=== PATIENT | male | born 1970 | race Caucasian/White ===

== ENCOUNTER 2018-06-16 17:56 | Emergency (ER) | payer OTHER ==
[2018-06-16] MEDS ORDERED: ADENOSINE 6 MG/ 2ML VIAL IV ONE (18:10)
[2018-06-16] MEDS ORDERED: NA CHLORIDE 0.9% 1,000 ML ONE (18:10)
[2018-06-16] MEDS ORDERED: METOPROLOL TARTRATE 5 MG/5 ML INJ IV ONE (18:22)
[2018-06-16 18:30] LABS: Protime INR 0.97
[2018-06-16 18:33] LABS: Absolute Lymphocytes (CBC) 3.3 K/uL (0.7-4.9); Absolute Monocytes 1.1 K/uL (0.1-1.3); Absolute Neutrophil 7.2 K/uL (1.8-8.0); Basophils % 1.1 % (0-1.3); Eosinophils % 1.4 % (0-4.4); Hematocrit 45.7 % (39.6-49.0); MCH 28.7 pg (27.0-35.0); MCV 83.9 fL (80-100); MPV 8.2 fL (7.6-11.3); Monocytes % 9.3 % (3.3-12.3); RBC Red Blood Cell Count 5.45 M/uL (4.33-5.43)
[2018-06-16] MEDS ORDERED: ETOMIDATE 20 MG/10 ML VIAL IV ONE (18:34)
[2018-06-16] MEDS ORDERED: FENTANYL CITR 100 MCG/2 ML ONE (18:40)
--- NOTE | 2018-06-16 18:50 | RAD REPORT ---
EXAM DESCRIPTION: RAD - Chest Single View - 06/16/2018 6:45 pm CLINICAL HISTORY: CHEST PAIN Chest pain. COMPARISON: No comparisons FINDINGS: Portable technique limits examination quality. The lungs are grossly clear. The heart is upper limit of normal in size. No displaced fractures. IMPRESSION: No acute intrathoracic process suspected.
--- NOTE | 2018-06-16 19:08 | EKG ---
Test Date: 2018-06-16 Test Time: 18:04:42 Bpm Analyst: DEZ MEASUREMENT RESULTS: Intervals: Rate: 187 NM: QRSD: 86 QT: 266 QTc: 469 [place]: P: NM: QRS: 40 T: 5 INTERPRETIVE STATEMENTS: Supraventricular tachycardia Otherwise normal ECG No previous ECG available for comparison Electronically Signed On 06-16-18 19:07:34 CDT by Isael Clarke
[2018-06-16 19:14] LABS: ALT/SGPT 47 U/L (12-78); AST/SGOT 24 U/L (15-37); Albumin 3.9 g/dL (3.4-5.0); Alkaline Phosphatase 59 U/L (45-117); BUN Blood Urea Nitrogen 20 mg/dL (7-18); Bicarbonate 28 mmol/L (21-32); Bilirubin Direct < 0.1 mg/dL (0-0.2); Bilirubin Total 0.3 mg/dL (0.2-1.0); CKMB Creatine Kinase MB 1.6 ng/mL (0.3-3.6); Creatine Phosphokinase 88 U/L (39-308); Glucose Level 171 mg/dL (74-106); Magnesium 1.9 mg/dL (1.8-2.4); NT PRO-BNP 142 pg/mL (<125); Potassium 3.8 mmol/L (3.5-5.1); Protein, Total 7.6 g/dL (6.4-8.2); Sodium Level 135 mmol/L (136-145)
[2018-06-16] MEDS ORDERED: NEBIVOLOL HCL 5 MG TAB ONE (19:44)
--- NOTE | 2018-06-16 20:38 | EDPHYS ---
Physician Documentation [facility] Name: Ben Madsen Age: 48 yrs Sex: Male : 1970 Arrival Date: 06/16/2018 Time: 18:00 Bed 3 Private MD: Jesus Patten B ED Physician Brennon Otero HPI: 06/16 19:57 This 48 yrs old Male presents to ER via Ambulatory with complaints of Racing jr8 Heart. 19:57 Onset: The symptoms/episode began/occurred acutely, today. Associated signs and jr8 symptoms: Pertinent positives: shortness of breath, dizziness. Modifying factors: The patient symptoms are alleviated by nothing, the patient symptoms are aggravated by activity. The patient has experienced similar episodes in the past, a few times. The patient has been recently seen by a physician:. Patient stated that he has had a racing heart rate about 1 month ago. Stated that he was worked up by cardiology including having echo and stress test. All came back normal. Stated that he was taken off bystolic and put on losartan/hctz. Stated that today has had multiple episodes of palpitations and racing feeling. Has never felt this bad in the past . Historical: - Allergies: 18:06 No Known Allergies; hj - Home Meds: 18:06 simvastatin 10 mg Oral tab 1 tab once daily [Active]; metformin 500 mg Oral Tb24 1 tab hj once daily [Active]; losartan-hydrochlorothiazide 100-25 mg oral tab 1 tab once daily [Active]; - PMHx: 18:06 Hyperlipidemia; Hypertension; Diabetes - NIDDM; hj - PSHx: 18:06 Appendectomy; hj - Immunization history:: Adult Immunizations up to date. - Social history:: Smoking status: Patient/guardian denies using tobacco, Patient/guardian denies using alcohol. - Ebola Screening: : Patient negative for fever greater than or equal to 101.5 degrees Fahrenheit, and additional compatible Ebola Virus Disease symptoms Patient denies exposure to infectious person Patient denies travel to an Ebola-affected area in the 21 days before illness onset. ROS: 19:57 Eyes: Negative for injury, pain, redness, and discharge, ENT: Negative for injury, jr8 pain, and discharge, Neck: Negative for injury, pain, and swelling, Respiratory: Negative for shortness of breath, cough, wheezing, and pleuritic chest pain, Abdomen/GI: Negative for abdominal pain, nausea, vomiting, diarrhea, and constipation, Back: Negative for injury and pain, MS/Extremity: Negative for injury and deformity, Skin: Negative for injury, rash, and discoloration. 19:57 Neuro: Negative for headache, weakness, numbness, tingling, and seizure. 19:57 Cardiovascular: Positive for palpitations. Exam: 19:57 Eyes: Pupils equal round and reactive to light, extra-ocular motions intact. Lids and jr8 lashes normal. Conjunctiva and sclera are non-icteric and not injected. Cornea within normal limits. Periorbital areas with no swelling, redness, or edema. ENT: Nares patent. No nasal discharge, no septal abnormalities noted. Tympanic membranes are normal and external auditory canals are clear. Oropharynx with no redness, swelling, or masses, exudates, or evidence of obstruction, uvula midline. Mucous membranes moist. Neck: Trachea midline, no thyromegaly or masses palpated, and no cervical lymphadenopathy. Supple, full range of motion without nuchal rigidity, or vertebral point tenderness. No Meningismus. Respiratory: Lungs have equal breath sounds bilaterally, clear to auscultation and percussion. No rales, rhonchi or wheezes noted. No increased work of breathing, no retractions or nasal flaring. Abdomen/GI: Soft, non-tender, with normal bowel sounds. No distension or tympany. No guarding or rebound. No evidence of tenderness throughout. Back: No spinal tenderness. No costovertebral tenderness. Full range of motion. Skin: Warm, dry with normal turgor. Normal color with no rashes, no lesions, and no evidence of cellulitis. MS/ Extremity: Pulses equal, no cyanosis. Neurovascular intact. Full, normal range of motion. Neuro: Awake and alert, GCS 15, oriented to person, place, time, and situation. Cranial nerves II-XII grossly intact. Motor strength 5/5 in all extremities. Sensory grossly intact. Cerebellar exam normal. Normal gait. 19:57 Cardiovascular: Rate: tachycardic, actual rate is 190 bpm, Rhythm: irregular, Pulses: Pulses are 1+ in right radial artery and left radial artery. Heart sounds: normal, normal S1and S2, no S3 or S4, no murmur, no rub, no gallop, Edema: is not appreciated, JVD: is not appreciated. Vital Signs: 18:03 BP 154 / 102; Pulse 192; Resp 18; Temp 97.3; Pulse Ox 100% on R/A; Weight 102.51 kg; hj Height 5 ft. 7 in. (170.18 cm); Pain 0/10; 18:19 BP 137 / 93; Pulse 190 MON; sv 18:21 Pulse 115; Resp 17; Pulse Ox 99% on 2.5 lpm NC; sv 18:25 Pulse 170; Pulse Ox 100% on 2.5 lpm NC; sv 18:28 BP 103 / 65; Pulse 164; Resp 17; Pulse Ox 100% on 2.5 lpm NC; sv 18:35 BP 111 / 74; Pulse 157; Resp 16 S; Pulse Ox 99% on 2 lpm NC; iw 18:41 BP 112 / 91; Pulse 105; Resp 16 S; Pulse Ox 99% on 2 lpm NC; iw 18:46 BP 134 / 91; Pulse 101; Resp 23 S; Pulse Ox 98% on 2 lpm NC; iw 19:00 BP 129 / 88; Pulse 107; Resp 22; Pulse Ox 100% on 2.5 lpm NC; sv 19:29 BP 115 / 81; Pulse 106; Resp 20; Pulse Ox 96% on R/A; Pain 0/10; ak1 19:56 BP 134 / 87; Pulse 103; Resp 16; Pulse Ox 96% on R/A; Pain 0/10; ak1 20:29 BP 128 / 86; Pulse 102; Resp 18; Temp 97.3; Pulse Ox 96% on R/A; Pain 0/10; ak1 18:03 Body Mass Index 35.40 (102.51 kg, 170.18 cm) hj 18:19 SVT sv 18:21 Sinus tachycardia sv 18:25 Sinus tachycardia sv 18:28 Sinus tachycardia sv Procedures: 20:39 Cardioversion: (synchronized) for treatment of SVT, with 150 joules X 1. Post procedure jr8 rhythm is sinus rhythm, the patient tolerated the procedure well. Moderate sedation: Pre-procedure assessment: the patient has been NPO 4 hour(s) prior to arrival, ASA physical classification: III - organic disease with definite functional impairment, Airway assessment: able to hyperextend neck, able to maintain airway, can open mouth without difficulty, Mallampati classification of tongue size: II - faucial pillars and soft palate can be visualized, but uvula is masked by the base of the tongue, Monitoring during procedure: finishing range supervisor, continuous pulse oximetry, nurse at bedside at all times, Medications employed: Etomidate, 5 mg(s), Post-procedure assessment: the patient is mildly sedated, Ramirez sedation score: 4 - brisk response to a light glabellar tap, Respiratory status: even and unlabored, a reversal agent was not used. MDM: 18:18 Patient medically screened. jr8 20:35 Data reviewed: vital signs, nurses notes, lab test result(s), EKG, radiologic studies, jr8 plain films. Data interpreted: Pulse oximetry: on room air is 96 %. Interpretation: normal. Counseling: I had a detailed discussion with the patient and/or guardian regarding: the historical points, exam findings, and any diagnostic results supporting the discharge/admit diagnosis, lab results, the need for outpatient follow up, a restaurant delivery driver, to return to the emergency department if symptoms worsen or persist or if there are any questions or concerns that arise at home. Response to treatment: the patient's symptoms have resolved after treatment. ED course: Discussed with patient that because of his bodies resistence to treatment initially. It would be a good idea to at least be observed over night to insure he remains stable and that the Bystolic that I put him back on works. Patient wants to go home. Told patient that he needs to f/u with cardiology by end of week if possible. If it happens again to immediately come back. To restart Bystolic but instead of 10 QD to do 5 QD to see how he does. Patient is grateful and good with this. Would follow up or come back . 06/16 18:12 Order name: Basic Metabolic Panel; Complete Time: 19:24 06/16 18:12 Order name: CBC with Diff; Complete Time: 18:45 06/16 18:12 Order name: Ckmb; Complete Time: 19:24 06/16 18:12 Order name: CPK; Complete Time: 19:24 06/16 18:12 Order name: LFT's; Complete Time: 19:24 06/16 18:12 Order name: Magnesium; Complete Time: 19:24 06/16 18:12 Order name: NT PRO-BNP; Complete Time: 19:24 [facility] 06/16 18:12 Order name: PT-INR; Complete Time: 18:45 [facility] 06/16 18:12 Order name: Ptt, Activated; Complete Time: 18:45 [facility] 06/16 18:12 Order name: Troponin (emerg Dept Use Only); Complete Time: 18:45 [facility] 06/16 18:12 Order name: XRAY Chest (1 view); Complete Time: 18:54 [facility] 06/16 18:08 Order name: EKG; Complete Time: 18:08 06/16 18:12 Order name: Cardiac monitoring; Complete Time: 18:13 [facility] 06/16 18:12 Order name: EKG - Nurse/Tech; Complete Time: 18:13 [facility] 06/16 18:12 Order name: IV Saline Lock; Complete Time: 18:49 [facility] 06/16 18:12 Order name: Labs collected and sent; Complete Time: 18:49 [facility] 06/16 18:12 Order name: O2 Per Protocol; Complete Time: 18:13 [facility] 06/16 18:12 Order name: O2 Sat Monitoring; Complete Time: 18:13 [facility] Administered Medications: 18:15 Drug: Adenosine 6 mg Route: IVP; Site: right antecubital; sv 18:53 Follow up: Response: No adverse reaction sv 18:19 Drug: Adenosine 12 mg Route: IVP; Site: right antecubital; sv 18:54 Follow up: Response: No adverse reaction sv 18:25 Drug: Lopressor 5 mg Route: IVP; Site: right antecubital; sv 18:54 Follow up: Response: No adverse reaction sv 18:37 Drug: fentaNYL (PF) 25 mcg Route: IVP; Site: right antecubital; iw 18:53 Follow up: Response: No adverse reaction sv 18:38 Drug: Etomidate 2.5 mg Route: IVP; Site: right antecubital; sv 18:53 Follow up: Response: No adverse reaction sv 18:38 Drug: Etomidate 2.5 mg Route: IVP; Site: right antecubital; sv 18:53 Follow up: Response: No adverse reaction sv 19:56 Drug: Bystolic 5 mg Route: PO; ak1 20:10 Follow up: Response: No adverse reaction ak1 Disposition: 06/17 07:10 Co-signature as Attending Physician, Brennon Otero MD. rn Disposition: 06/16/18 20:37 Discharged to Home. Impression: Supraventricular tachycardia. - Condition is Stable. - Discharge Instructions: Electrical Cardioversion, Pharmaceutical Cardioversion, Paroxysmal Supraventricular Tachycardia. - Medication Reconciliation Form, Thank You Letter, Antibiotic Education, Prescription Opioid Use form. - Follow up: Enrrique Yusuf MD; When: 1 - 2 days; Reason: Recheck today's complaints, Continuance of care, Re-evaluation by your physician. - Problem is new. - Symptoms are resolved. - Notes: To start Bystolic 5 mg once a day Critical care time excluding procedures: 06/16 20:39 Critical care time: Bedside Care: 20 minutes, Consultation: 10 minutes, Family jr8 Intervention: 10 minutes. Total time: 40 minutes Signatures: Dispatcher [employer] Charisse Hancock RN RN sv Williams, Irene, RN RN iw Nieto, Roman, MD MD rn Roszak, Josh, PA PA jr8 Sindy Luciano RN RN ak1 Henry Garcia RN RN Corrections: (The following items were deleted from the chart) 20:38 18:12 Urine Dipstick-Ancillary ordered. jr8 ak1 20:47 20:37 06/16/2018 20:37 Discharged to Home. Impression: Supraventricular tachycardia. ak1 Condition is Stable. Forms are Medication Reconciliation Form, Thank You Letter, Antibiotic Education, Prescription Opioid Use. Follow up: Enrrique Yusuf; When: 1 - 2 days; Reason: Recheck today's complaints, Continuance of care, Re-evaluation by your physician. Problem is new. Symptoms are resolved. jr8
--- NOTE | 2018-06-16 20:38 | ER ---
Nurse's Notes [facility] Name: Ben Madsen Age: 48 yrs Sex: Male : 1970 Arrival Date: 06/16/2018 Time: 18:00 Bed 3 Private MD: Jesus Patten B Diagnosis: Supraventricular tachycardia Presentation: 06/16 18:03 Presenting complaint: Patient states: at around lunch time, he was eating lunch, when hj he noticed something funny on his heart beat, racing fast, at home, machine caught it at 188; took 2 aspirin, pt denies chest pain or SOB; see Dr. Yusuf for this problem;. Transition of care: patient was not received from another setting of care. Onset of symptoms was June 16, 2018 at 11:00. Risk Assessment: Do you want to hurt yourself or someone else? Patient reports no desire to harm self or others. Initial Sepsis Screen: Does the patient meet any 2 criteria? No. Patient's initial sepsis screen is negative. Does the patient have a suspected source of infection? No. Patient's initial sepsis screen is negative. Care prior to arrival: None. Medication(s) given: ASA, 81 mg, x 2. 18:03 Method Of Arrival: Ambulatory 18:03 Acuity: INDIO 2 hj Triage Assessment: 18:07 General: Appears in no apparent distress. uncomfortable, obese, Behavior is hj cooperative, appropriate for age, anxious. Pain: Denies pain. Historical: - Allergies: 18:06 No Known Allergies; hj - Home Meds: 18:06 simvastatin 10 mg Oral tab 1 tab once daily [Active]; metformin 500 mg Oral Tb24 1 tab hj once daily [Active]; losartan-hydrochlorothiazide 100-25 mg oral tab 1 tab once daily [Active]; - PMHx: 18:06 Hyperlipidemia; Hypertension; Diabetes - NIDDM; hj - PSHx: 18:06 Appendectomy; hj - Immunization history:: Adult Immunizations up to date. - Social history:: Smoking status: Patient/guardian denies using tobacco, Patient/guardian denies using alcohol. - Ebola Screening: : Patient negative for fever greater than or equal to 101.5 degrees Fahrenheit, and additional compatible Ebola Virus Disease symptoms Patient denies exposure to infectious person Patient denies travel to an Ebola-affected area in the 21 days before illness onset. Screenin:07 Abuse screen: Denies threats or abuse. Denies injuries from another. Nutritional hj screening: No deficits noted. Tuberculosis screening: No symptoms or risk factors identified. Fall Risk None identified. Assessment: 18:07 General: Appears distressed, uncomfortable, obese, Behavior is cooperative, anxious. sv Pain: Complains of pain in chest Pain currently is 10 out of 10 on a pain scale. Is continuous. Neuro: Level of Consciousness is awake, alert, obeys commands, Oriented to person, place, time, situation, Moves all extremities. Full function Speech is normal. Cardiovascular: Rhythm is SVT. Respiratory: Reports shortness of breath at rest Airway is patent Respiratory effort is labored, Respiratory pattern is symmetrical, tachypnea. Derm: Skin is diaphoretic, Skin is pale. Musculoskeletal: Range of motion: intact in all extremities. 18:43 Reassessment: Patient appears in no apparent distress at this time. pt rhythm is sinus iw tach at 102 bpm after synchronized cardioversion, VSS. 18:50 General: Appears in no apparent distress. comfortable, Behavior is calm, cooperative. sv Pain: Denies pain. Neuro: Level of Consciousness is lethargic. Cardiovascular: Rhythm is sinus tachycardia. Respiratory: Respiratory effort is even, unlabored, Respiratory pattern is symmetrical, tachypnea. Derm: Skin is normal. 19:26 Reassessment: Patient appears in no apparent distress at this time. Patient is alert, ak1 oriented x 3, equal unlabored respirations, skin warm/dry/pink. Patient states feeling better. Patient states symptoms have improved. pt expressed he wishes not to be admitted. ERP notified. plan of care to monitor pt and reassess possible admission status was agreed upon. pt tolerated water. family at bedside. will continue to monitor. . Vital Signs: 18:03 BP 154 / 102; Pulse 192; Resp 18; Temp 97.3; Pulse Ox 100% on R/A; Weight 102.51 kg; hj Height 5 ft. 7 in. (170.18 cm); Pain 0/10; 18:19 BP 137 / 93; Pulse 190 MON; sv 18:21 Pulse 115; Resp 17; Pulse Ox 99% on 2.5 lpm NC; sv 18:25 Pulse 170; Pulse Ox 100% on 2.5 lpm NC; sv 18:28 BP 103 / 65; Pulse 164; Resp 17; Pulse Ox 100% on 2.5 lpm NC; sv 18:35 BP 111 / 74; Pulse 157; Resp 16 S; Pulse Ox 99% on 2 lpm NC; iw 18:41 BP 112 / 91; Pulse 105; Resp 16 S; Pulse Ox 99% on 2 lpm NC; iw 18:46 BP 134 / 91; Pulse 101; Resp 23 S; Pulse Ox 98% on 2 lpm NC; iw 19:00 BP 129 / 88; Pulse 107; Resp 22; Pulse Ox 100% on 2.5 lpm NC; sv 19:29 BP 115 / 81; Pulse 106; Resp 20; Pulse Ox 96% on R/A; Pain 0/10; ak1 19:56 BP 134 / 87; Pulse 103; Resp 16; Pulse Ox 96% on R/A; Pain 0/10; ak1 20:29 BP 128 / 86; Pulse 102; Resp 18; Temp 97.3; Pulse Ox 96% on R/A; Pain 0/10; ak1 18:03 Body Mass Index 35.40 (102.51 kg, 170.18 cm) hj 18:19 SVT sv 18:21 Sinus tachycardia sv 18:25 Sinus tachycardia sv 18:28 Sinus tachycardia sv Vitals: 18:35 Cardiac Rhythm Assessment SVT. iw ED Course: 18:00 Patient arrived in ED. do 18:00 Jesus Patten MD is Private Physician. do 18:02 Kvng Alfaro, RN is Primary Nurse. sg 18:05 Triage completed. hj 18:07 Arm band placed on right wrist. hj 18:07 Patient has correct armband on for positive identification. Placed in gown. Bed in low hj position. Call light in reach. Side rails up X 1. Adult w/ patient. 18:10 EKG done, by operating room tech. reviewed by Shoaib GARCIA. 3 18:10 Initial lab(s) drawn, by nj, sent to lab. Inserted saline lock: 18 gauge in right sv antecubital area, using aseptic technique. Blood collected. Flushed right antecubital with 5 ml normal saline. Oxygen administration via nasal cannula \T\ 2L/min. 18:18 [facility]ib Max [facility] is [facility] jr8 18:18 Brennon Otero MD is Attending Physician. jr8 18:38 X-ray completed. Portable x-ray completed in exam room. Patient tolerated procedure ag1 well. 18:40 Assist provider with cardioversion (synchronized) with pads, for treatment of SVT with iw 150 joules X 1. Set up for procedure. Performed by Shoaib GARCIA Monitored with cardiac cath technician, pulse ox, Post procedure rhythm is Sinus Tach. Patient tolerated well. 18:43 EKG done, by ED staff, reviewed by Shoaib GARCIA. sv 18:45 XRAY Chest (1 view) In Process Unspecified. EDMS 19:00 Report given to Sindy MCGEE. sv 20:37 Enrrique Yusuf MD is Referral Physician. jr8 20:47 IV discontinued, intact, bleeding controlled, No redness/swelling at site. Pressure ak1 dressing applied. Administered Medications: 18:15 Drug: Adenosine 6 mg Route: IVP; Site: right antecubital; sv 18:53 Follow up: Response: No adverse reaction sv 18:19 Drug: Adenosine 12 mg Route: IVP; Site: right antecubital; sv 18:54 Follow up: Response: No adverse reaction sv 18:25 Drug: Lopressor 5 mg Route: IVP; Site: right antecubital; sv 18:54 Follow up: Response: No adverse reaction sv 18:37 Drug: fentaNYL (PF) 25 mcg Route: IVP; Site: right antecubital; iw 18:53 Follow up: Response: No adverse reaction sv 18:38 Drug: Etomidate 2.5 mg Route: IVP; Site: right antecubital; sv 18:53 Follow up: Response: No adverse reaction sv 18:38 Drug: Etomidate 2.5 mg Route: IVP; Site: right antecubital; sv 18:53 Follow up: Response: No adverse reaction sv 19:56 Drug: Bystolic 5 mg Route: PO; ak1 20:10 Follow up: Response: No adverse reaction ak1 Outcome: 20:37 Condition: improved ak1 20:37 Discharge ordered by . jr8 20:46 Discharged to home ambulatory, with family. ak1 20:46 Discharge instructions given to patient, family, Instructed on discharge instructions, follow up and referral plans. Demonstrated understanding of instructions, follow-up care. 20:47 Patient left the ED. ak1 Signatures: Dispatcher [employer] EDMS Reggie Boydhanie, RN RN eneida Alfaro, Kvng, RN RN sg Rome, Fior, RN RN iw Shoaib Max PA PA jr8 Sindy Luciano, RN RN ak1 Daniel, Ivone [email or web address] Henry Garcia, RN RN Amalia, Vanesa Tipton, Hollie 3
--- NOTE | 2018-06-17 11:09 | EKG ---
Test Date: 2018-06-16 Test Time: 18:42:17 Center Mgr: JUANIS MEASUREMENT RESULTS: Intervals: Rate: 102 MA: 172 QRSD: 102 QT: 328 QTc: 427 [place]: P: 58 MA: 172 QRS: 39 T: 50 INTERPRETIVE STATEMENTS: Sinus tachycardia Otherwise normal ECG Compared to ECG 06/16/2018 18:04:42 Supraventricular tachycardia no longer present Electronically Signed On 06-17-18 11:08:55 CDT by Isael Clarke
== END 2018-06-16 20:47 | disposition home or self-care (01) ==
LOC: ER 17:56
PROC: 5A2204Z Restoration of Cardiac Rhythm, Single (ICD-10-PCS; principal; 2018-06-16)
DX: I47.1 Supraventricular tachycardia (principal); I10 Essential (primary) hypertension; E11.9 Type 2 diabetes mellitus without complications; E78.5 Hyperlipidemia, unspecified
CPT/HCPCS: 36415; 71045; 80048; 80076; 82550; 82553; 83735; 83880; 84484; 85025; 85610; 85730; 92960; 93005; 96374; 96375; 99291; 99292; J0153; J3010; J7030

== ENCOUNTER 2020-06-05 19:18 | Emergency (ER) | payer OTHER ==
--- OUTSIDE RECORDS SUMMARY | 2020-06-05 19:20 | XMS REPORT | Clinical Summary ---
:1970 Author Organization [facility] Address [address] [place] [id number] Care Team Providers Name Role Phone Asked, Pcp Primary Care Provider Unavailable Allergies No Known Allergies Medications Medication Sig Dispensed Refills Start Date End Date Status losartan (COZAAR) 100 Take 100 mg by 0 Active MG tablet mouth daily. nebivolol (BYSTOLIC) Take 10 mg by mouth 0 Active 10 MG tablet daily. simvastatin (ZOCOR) Take 10 mg by mouth 0 Active 10 MG tablet nightly. Not currently taking metFORMIN (FORTAMET) Take 500 mg by 0 Active 500 mg 24 hr tablet mouth daily with breakfast. allopurinol Take 300 mg by 0 Act tomas (ZYLOPRIM) 300 MG mouth daily. tablet icosapent ethyl Take 1 g by mouth 0 Active (VASCEPA) 1 gram daily. capsule dulaglutide Inject 1.5 mg under 0 Active (TRULICITY) 1.5 the skin every 7 mg/0.5 mL pen days. injector Active Problems Not on file Social History Tobacco Use Types Packs/Day Years Used Date Former Smoker Cigarettes Quit: 2015 Smokeless Tobacco: Current User Chew Alcohol Use Drinks/Week oz/Week Comments Yes social Sex Assigned at Date Recorded Not on file Job Start Date Occupation Industry Not on file Not on file Not on file Travel History Travel Start Travel End No recent travel history available. Last Filed Vital Signs Not on file Plan of Treatment Not on file Results Not on fileafter 06/05/2019 Advance Directives For more information, please contact: [phone] Type Date Recorded Patient It Security Architect Explanati on Advance Directives, Living Will and Medical Power of Director Of Primary Care
--- OUTSIDE RECORDS SUMMARY | 2020-06-05 19:21 | XMS REPORT | Summary of Care ---
:1970 Author Organization [facility] - Health Address [address] [place] [address] Care Team Providers Name Role Phone Unavailable Primary Care Provider Unavailable Encounter Details Date Type Department Care Team Description 06/01/2020 Letter (Out) [facility] [employer] Message s Doctor Unassigned, No [address] [facility] [place] [address] [address] [facility] [phone] [place] [address] Allergies Not on Filedocumented as of this encounter (statuses as of 06/01/2020) Medications Not on filedocumented as of this encounter (statuses as of 06/01/2020) Active Problems Not on filedocumented as of this encounter (statuses as of 06/01/2020) Social History Tobacco Use Types Packs/Day Years Used Date Never Assessed Sex Assigned at Date Recorded Not on file Job Start Date Occupation Industry Not on file Not on file Not on file Travel History Travel Start Travel End No recent travel history available. documented as of this encounter Last Filed Vital Signs Not on filedocumented in this encounter Plan of Treatment Date Type Specialty Care Team Description 06/01/2020 Laboratory Only Family Medicine Lab, Adc Fam Pob I Amber pected Covid-19 Virus Infection (Prim pedro pablo Dx) Health Maintenance Due Date Last Done Comments DTaP,Tdap,and Td Vaccines (1 - 02/06/1979 Tdap) Depression Screening 1980 COLONOSCOPY 02/06/2018 Zoster Recombinant Vaccine 02/06/2018 (SHINGRIX) (1 of 2) INFLUENZA VACCINE (#1) 2020 PNEUMOCOCCAL 0-64 YEARS COMBINED Aged Out No longer eligible based on SERIES patient's age to complete this topic documented as of this encounter Results Not on filedocumented in this encounter Insurance Payer Benefit Plan / Group Subscriber ID Effective Dates Phone Address Type CRISTI COLIN II [id number] 2019-Present H MO/PPO/POS documented as of this encounter
--- OUTSIDE RECORDS SUMMARY | 2020-06-05 19:21 | XMS REPORT | Summary of Care ---
:1970 Author Organization [facility] Address [address] [place] [place] [address] Care Team Providers Name Role Phone Unavailable Primary Care Provider Unavailable Reason for Visit Reason Comments Exposure LAB Encounter Details Date Type Department Care Team Description 06/01/2020 Laboratory Only [facility] Family Jared Awilda duarte, HOSPITAL SALES REPRESENTATIVE [address] [address] Suspected Covid-19 [facility], Adc Fam Pob I Virus Infection [address] [place] [address] (Primary D x) [place] [address] Allergies Not on Filedocumented as of this [...] filedocumented in this encounter Plan of Treatment Name Type Priority Associated Diagnoses Order S chedule COVID-19 (PCR MOLECULAR LAB Routine Suspected Covid-1 9 Virus Expected: 06/01/2020, TESTING) Infection Expires: 2020 Health Maintenance Due Date Last Done Comments DTaP,Tdap,and Td Vaccines (1 - 02/06/1979 Tdap) Depression Screening 1980 COLONOSCOPY 02/06/2018 Zoster Recombinant Vaccine 02/06/2018 (SHINGRIX) (1 of 2) INFLUENZA VACCINE (#1) 2020 PNEUMOCOCCAL 0-64 YEARS COMBINED Aged Out No longer eligible based on SERIES patient's age to complete this topic documented as of this encounter Results Not on filedocumented in this encounter Visit Diagnoses Diagnosis Suspected Covid-19 Virus Infection - [facility] documented in this encounter Additional Health Concerns Infection Onset Date Last Indicated Resolved Time COVID-19 Rule Out 06/01/2020 06/01/2020 documented as of this encounter documented as of this encounter
--- OUTSIDE RECORDS SUMMARY | 2020-06-05 19:21 | XMS REPORT | Summary of Care ---
:1970 Author Organization [facility] Address [address] [place] [address] Care Team Providers Name Role Phone Unavailable Primary Care Provider Unavailable Reason for Visit Reason Comments Exposure LAB Encounter Details Date Type Department Care Team Description 06/01/2020 Laboratory Only [facility] Family Jared Awilda duarte, DIMENSIONAL INSPECTOR [address] [address] Suspected Covid-19 [facility], Adc Fam Pob I Virus Infection [address] [place] [address] (Primary D x) [place] [address] Allergies Not on Filedocumented as [...] Diagnoses Diagnosis Suspected Covid-19 Virus Infection - [facility] documented in this encounter Additional Health Concerns Infection Onset Date Last Indicated Resolved Time COVID-19 Rule Out 06/01/2020 06/01/2020 documented as of this encounter documented as of this encounter
--- OUTSIDE RECORDS SUMMARY | 2020-06-05 19:21 | XMS REPORT | Summary of Care ---
:1970 Author Organization [facility] Address [address] [place] [address] Care Team Providers Name Role Phone Unavailable Primary Care Provider Unavailable Reason for Visit Reason Comments Lab Results Covid positive Encounter Details Date Type Department Care Team Description 06/02/2020 Telephone [facility] Family Awilda Coleman FNP Lab Results (Covid Medicine, [place]- [address] positive) [place] [address] Primary Care [place], [place] [address], [address] [address] [place] [address] Allergies Not on Filedocumented as of this encounter (statuses as of 06/02/2020) Medications Not on filedocumented as of this encounter (statuses as of 06/02/2020) Active Problems Not on filedocumented as of this encounter (statuses as of 06/02/2020) Social History Tobacco Use Types Packs/Day Years Used Date Never Assessed Sex Assigned at Date Recorded Not on file Job Start Date Occupation Industry Not on file Not on file Not on file Travel History Travel Start Travel End No recent travel history available. documented as of this encounter Last Filed Vital Signs Not on filedocumented in this encounter Plan of Treatment Health Maintenance Due Date Last Done Comments DTaP,Tdap,and Td Vaccines (1 - 02/06/1979 Tdap) Depression Screening 1980 COLONOSCOPY 02/06/2018 Zoster Recombinant Vaccine 02/06/2018 (SHINGRIX) (1 of 2) INFLUENZA VACCINE (#1) 2020 PNEUMOCOCCAL 0-64 YEARS COMBINED Aged Out No longer eligible based on SERIES patient's age to complete this topic documented as of this encounter Results Not on filedocumented in this encounter Additional Health Concerns Infection Onset Date Last Indicated Resolved Time COVID-19 Rule Out 06/01/2020 06/01/2020 06/02/2020 1: 45 AM CDT COVID-19 Confirmed 06/01/2020 06/01/2020 documented as of this encounter Insurance Payer Benefit Plan / Group Subscriber ID Effective Dates Phone Address Type CRISTI COLIN II [id number] 2019-Present H MO/PPO/POS documented as of this encounter
--- OUTSIDE RECORDS SUMMARY | 2020-06-05 19:21 | XMS REPORT | Continuity of Care Document ---
:1970 Author Organization [facility] t Address [address] [place] [address] Care Team Providers Name Role Phone Asked, Pcp Primary Care Physician Unavailable Jared SINGH Attending Clinician Lab, Fam Pob I Attending Clinician Unavailable Problems This patient has no known problems. Allergies, Adverse Reactions, Alerts This patient has no known allergies or adverse reactions. Social History Social Habit Start Date Stop Date Quantity Comments Source History of Current smoker [facility] tobacco use Sex Assigned At [facility] Alcohol intake 2018-09-10 2018-09-10 Current drinker [facility] 00:00:00 00:00:00 of alcohol (finding) Alcohol Comment 2018-09-08 2018-09-08 social [facility] ethodi 00:00:00 00:00:00 Smoking Status Start Date Stop Date Source Former smoker 2018-09-10 00:00:00 2018-09-10 00:00:00 [facility] Medications Ordered Filled Start Stop Current Ordering Indication Dosage Frequency Signature Comments Components Source Medication Medication Date Date Medication? Clinician (SIG) Name Name losartan 2017-11 Yes 100mg QD Take 100 [place] (COZAAR) 0-31 mg by Methodi 100 MG 15:59: mouth st tablet 42 daily. nebivolol 2017-11 Yes 10mg QD Take 10 mg [place] (BYSTOLIC) 0-31 by mouth Metho di 10 MG 15:59: daily. st tablet 42 simvastatin 2017-11 Yes 10mg QD Take 10 mg [place] (ZOCOR) 10 0-31 by mouth Metho di MG tablet 15:59: nightly. st 42 Not currently taking metFORMIN 2017-11 Yes 500mg QD Take 500 [place] [place] (FORTAMET) 0-31 mg by Methodi 500 mg 24 15:59: mouth st hr tablet 42 daily with breakfast. allopurinol 2017-11 Yes 300mg QD Take 300 [place] (ZYLOPRIM) 0-31 mg by Methodi 300 MG 15:59: mouth st tablet 42 daily. icosapent 2017-11 Yes 1g QD Take 1 g [place] ethyl 0-31 by mouth Methodi (VASCEPA) 1 15:59: daily. st gram 42 capsule dulaglutide 2017-11 Yes 1.5mg Q1W Inject 1.5 [place] (TRULICITY) 0-31 mg under Meth siomara 1.5 mg/0.5 15:59: the skin st mL pen 42 every 7 injector days. Procedures This patient has no known procedures. Encounters Start End Encounter Admission Attending Care Care Encounter Source Date/Time Date/Time Type Type Clinicians Facility Department ID 2020-06-02 2020-06-02 Telephone Jared, [facility] [id number] 00:00:00 00:00:00 [facility] [id number] CARE [id number] PAVILLION [id number] 2020-06-01 2020-06-01 Laboratory Lab, [facility] [id number] 10:10:17 10:17:51 Only Fam Pob I Health [id number] [place] [id number] Professio [phone] nal 0[address] One Results This patient has no known results.
[2020-06-05] MEDS ORDERED: NA CHLORIDE 0.9% 1,000 ML ONE ×2 (19:48→22:02)
[2020-06-05 20:08] LABS: Absolute Lymphocytes (CBC) 1.1 K/uL (0.7-4.9); Basophils % 0.7 % (0-1.3); Hematocrit 33.4 % (39.6-49.0); Lymphocytes % 22.3 % (15.3-44.8); MPV 7.7 fL (7.6-11.3); RBC Red Blood Cell Count 4.05 M/uL (4.33-5.43)
--- NOTE | 2020-06-05 20:18 | RAD REPORT ---
EXAM DESCRIPTION: Yrn Single View06/05/2020 8:09 pm CLINICAL HISTORY: cough COMPARISON: none FINDINGS: Moderate patchy right lung opacities suspected There may be mild left lung opacities Heart is normal size IMPRESSION: Moderate right and possible mild left lung opacities probably pneumonia
[2020-06-05 20:36] LABS: Albumin 2.9 g/dL (3.4-5.0); Bilirubin Total 0.4 mg/dL (0.2-1.0); Potassium 3.6 mmol/L (3.5-5.1); Protein, Total 6.5 g/dL (6.4-8.2)
[2020-06-05] MEDS ORDERED: dexAMETHasone 10 MG/ML VIAL ONE (22:11)
--- NOTE | 2020-06-05 23:11 | EDPHYS ---
Physician Documentation [facility] Name: Ben Madsen Age: 50 yrs Sex: Male : 1970 Arrival Date: 06/05/2020 Time: 19:19 Bed 7 Private MD: ED Physician Fausto Paniagua HPI: 06/05 19:37 This 50 yrs old Male presents to ER via EMS with complaints of General pm1 Weakness. 19:37 The patient or guardian reports cough, with no sputum, flu symptoms. Onset: The pm1 symptoms/episode began/occurred 6 day(s) ago. Severity of symptoms: in the emergency department the symptoms are actually worse. Modifying factors: The symptoms are alleviated by nothing, the symptoms are aggravated by nothing. Associated signs and symptoms: Pertinent positives: Shortness of breath, poor appetite, Pertinent negatives: chest pain, fever, sore throat, palpitations, headache. The patient has not experienced similar symptoms in the past. The patient has been recently seen by a physician: the patient's primary care provider, Dr. Patten. Patient with cough and congestion onset Thursday and tested for covid. Positive result on Thursday and was prescribed steroid inhaler therapy by PCP. Patient presents to the ER with complaints of generalized weakness. Has had poor appetite. Historical: - Allergies: 19:25 No Known Allergies; ea - PMHx: 19:25 Hypertension; Hyperlipidemia; Diabetes - NIDDM; ea - PSHx: 19:25 Appendectomy; ea - Immunization history:: Adult Immunizations up to date. - Social history:: Smoking status: Patient denies any tobacco usage or history of. ROS: 19:37 Eyes: Negative for injury, pain, redness, and discharge, ENT: Negative for injury, pm1 pain, and discharge, Neck: Negative for injury, pain, and swelling, Cardiovascular: Negative for chest pain, palpitations, and edema. 19:37 Abdomen/GI: Negative for abdominal pain, nausea, vomiting, diarrhea, and constipation, Back: Negative for injury and pain, : Negative for injury, bleeding, discharge, and swelling, MS/Extremity: Negative for injury and deformity, Skin: Negative for injury, rash, and discoloration, Neuro: Negative for headache, weakness, numbness, tingling, and seizure. 19:37 Constitutional: Positive for poor PO intake, Negative for fever. 19:37 Respiratory: Positive for cough, shortness of breath, Negative for sputum production, wheezing. Exam: 19:37 Constitutional: This is a well developed, well nourished patient who is awake, alert, pm1 and in no acute distress. Head/Face: Normocephalic, atraumatic. Neck: Trachea midline, no thyromegaly or masses palpated, and no cervical lymphadenopathy. Supple, full range of motion without nuchal rigidity, or vertebral point tenderness. No Meningismus. Chest/axilla: Normal chest wall appearance and motion. Nontender with no deformity. No lesions are appreciated. Cardiovascular: Regular rate and rhythm with a normal S1 and S2. No gallops, murmurs, or rubs. Normal PMI, no JVD. No pulse deficits. Respiratory: Lungs have equal breath sounds bilaterally, clear to auscultation and percussion. No rales, rhonchi or wheezes noted. No increased work of breathing, no retractions or nasal flaring. Abdomen/GI: Soft, non-tender, with normal bowel sounds. No distension or tympany. No guarding or rebound. No evidence of tenderness throughout. Back: No spinal tenderness. No costovertebral tenderness. Full range of motion. Skin: Warm, dry with normal turgor. Normal color with no rashes, no lesions, and no evidence of cellulitis. MS/ Extremity: Pulses equal, no cyanosis. Neurovascular intact. Full, normal range of motion. 19:37 Neuro: Exam negative for acute changes, Orientation: is normal, Mentation: is normal, Motor: is normal, moves all fours. Vital Signs: 19:22 BP 95 / 55; Pulse 99; Resp 19; Temp 98.3; Pulse Ox 95% ; Weight 102.51 kg; Height 5 ft. ea 6 in. (167.64 cm); 21:03 BP 100 / 58; Pulse 86; Resp 18; Pulse Ox 94% on R/A; ea 22:00 BP 114 / 81; Pulse 89; Resp 18; Temp 98.2; Pulse Ox 94% on R/A; ea 23:09 BP 118 / 66; Pulse 89; Resp 18; Pulse Ox 98% ; ea 19:22 Body Mass Index 36.48 (102.51 kg, 167.64 cm) ea MDM: 19:25 Patient medically screened. [facility] 22:35 Data reviewed: vital signs. Data interpreted: Pulse oximetry: on room air is 95 %. pm1 Interpretation: normal. 22:35 Counseling: I had a detailed discussion with the patient and/or guardian regarding: the pm1 historical points, exam findings, and any diagnostic results supporting the discharge/admit diagnosis, lab results, radiology results. 22:35 ED course: Patient generalized weakness and shortness of breath. Patient's X-ray with pm1 pneumonia and he is positive for covid. No WBC present therefore antibiotics would not be effective for viral pneumonia. patient prescribed steroid inhaler. Patient does not require supplemental oxygen and is not tachypneic, therefore does not meet admission criteria. Therefore will prescribe the patient steroids and inhaler therapy and educated on return precautions . 06/05 19:36 Order name: CBC with Diff; Complete Time: 20:24 pm1 06/05 19:36 Order name: CMP; Complete Time: 20:53 pm1 06/05 19:36 Order name: Chest Single View XRAY; Complete Time: 20:24 pm1 06/05 19:36 Order name: IV Saline Lock; Complete Time: 19:55 pm1 06/05 19:45 Order name: EKG; Complete Time: 19:46 pm1 06/05 19:45 Order name: EKG - Nurse/Tech; Complete Time: 19:55 pm1 Administered Medications: 19:55 Drug: NS 0.9% 1000 ml Route: IV; Rate: 1000 ml; Site: left antecubital; ea 23:32 Follow up: Response: No adverse reaction; IV Status: Completed infusion; IV Intake: ea 1000ml 21:55 Drug: NS 0.9% 1000 ml Route: IV; Rate: 1 bolus; Site: left antecubital; ea 23:32 Follow up: Response: No adverse reaction; IV Status: Completed infusion; IV Intake: ea 1000ml 22:17 Drug: Decadron - Dexamethasone 10 mg Route: IVP; Site: left antecubital; ea 23:32 Follow up: Response: No adverse reaction ea Disposition: 06/06 08:35 Co-signature as Attending Physician, Fausto Paniagua MD I agree with the assessment and [facility] plan of care. Disposition: 06/05/20 23:11 Discharged to Home. Impression: Coronavirus as the cause of diseases classified elsewhere. - Condition is Stable. - Discharge Instructions: COVID-19. - Prescriptions for Prednisone 20 mg Oral Tablet - take 1 tablet by ORAL route every 12 hours for 10 days; 20 tablet. Albuterol Sulfate 90 mcg/actuation - inhale 1-2 puff by INHALATION route every 4-6 hours; 1 Inhaler. - Medication Reconciliation Form, Thank You Letter, Antibiotic Education, Prescription Opioid Use form. - Follow up: Emergency Department; When: As needed; Reason: Worsening of condition. Follow up: Private Physician; When: 2 - 3 days; Reason: Recheck today's complaints, Continuance of care, Re-evaluation by your physician. - Problem is new. - Symptoms have improved. Signatures: Dispatcher [employer] EDMS Fausto Paniagua MD MD cha Marinas, Patrick, [employer] MACHINE OPERATOR [employer] MACHINE OPERATOR pm1 Kellie Trevino RN RN ea Corrections: (The following items were deleted from the chart) 06/05 23:32 23:11 06/05/2020 23:11 Discharged to Home. Impression: Coronavirus as the cause of ea diseases classified elsewhere. Condition is Stable. Forms are Medication Reconciliation Form, Thank You Letter, Antibiotic Education, Prescription Opioid Use. Follow up: Emergency Department; When: As needed; Reason: Worsening of condition. Follow up: Private Physician; When: 2 - 3 days; Reason: Recheck today's complaints, Continuance of care, Re-evaluation by your physician. Problem is new. Symptoms have improved. pm1
--- NOTE | 2020-06-05 23:11 | ER ---
Nurse's Notes [facility] Name: Ben Madsen Age: 50 yrs Sex: Male : 1970 Arrival Date: 06/05/2020 Time: 19:19 Bed 7 Private MD: Diagnosis: Coronavirus as the cause of diseases classified elsewhere Presentation: 06/05 19:22 Chief complaint: EMS states: Pt reported he is covid + since Thursday of last week, pt ea reports he has been feeling weak. Coronavirus screen: Patient reports contact with known and/or suspected case of COVID-19. Prior COVID test. Ebola Screen: No symptoms or risks identified at this time. Initial Sepsis Screen: Does the patient meet any 2 criteria? HR > 90 bpm. Does the patient have a suspected source of infection? No. Patient's initial sepsis screen is negative. Risk Assessment: Do you want to hurt yourself or someone else? Patient reports no desire to harm self or others. Onset of symptoms was June 05, 2020. 19:22 Method Of Arrival: EMS: [facility] ea 19:22 Acuity: INDIO 3 ea Triage Assessment: 19:25 General: Appears in no apparent distress. Behavior is appropriate for age. Pain: Denies ea pain. Historical: - Allergies: 19:25 No Known Allergies; ea - PMHx: 19:25 Hypertension; Hyperlipidemia; Diabetes - NIDDM; ea - PSHx: 19:25 Appendectomy; ea - Immunization history:: Adult Immunizations up to date. - Social history:: Smoking status: Patient denies any tobacco usage or history of. Screenin:24 Abuse screen: Denies threats or abuse. Nutritional screening: No deficits noted. ea Tuberculosis screening: No symptoms or risk factors identified. Fall Risk IV access (20 points). Assessment: 19:27 General: Appears in no apparent distress. Behavior is appropriate for age. Neuro: Level ea of Consciousness is awake, alert, obeys commands, Oriented to person, place, time. Respiratory: Airway is patent Respiratory effort is even, unlabored, Respiratory pattern is regular, symmetrical. Derm: Skin is pink, warm \T\ dry. 20:55 Reassessment: Patient and/or family updated on plan of care and expected duration. Pain ea level reassessed. Patient is alert, oriented x 3, equal unlabored respirations, skin warm/dry/pink. 21:55 Reassessment: Patient and/or family updated on plan of care and expected duration. Pain ea level reassessed. Patient is alert, oriented x 3, equal unlabored respirations, skin warm/dry/pink. Provider at bedside updating pt on plan of care. 22:17 Reassessment: Patient and/or family updated on plan of care and expected duration. Pain ea level reassessed. Patient is alert, oriented x 3, equal unlabored respirations, skin warm/dry/pink. 23:31 Reassessment: Patient and/or family updated on plan of care and expected duration. Pain ea level reassessed. Patient is alert, oriented x 3, equal unlabored respirations, skin warm/dry/pink. Discharge instruction given to patient, verbalized the understanding of instruction. Pt left ED ambulatory tolerating well. Vital Signs: 19:22 BP 95 / 55; Pulse 99; Resp 19; Temp 98.3; Pulse Ox 95% ; Weight 102.51 kg; Height 5 ft. ea 6 in. (167.64 cm); 21:03 BP 100 / 58; Pulse 86; Resp 18; Pulse Ox 94% on R/A; ea 22:00 BP 114 / 81; Pulse 89; Resp 18; Temp 98.2; Pulse Ox 94% on R/A; ea 23:09 BP 118 / 66; Pulse 89; Resp 18; Pulse Ox 98% ; ea 19:22 Body Mass Index 36.48 (102.51 kg, 167.64 cm) ea ED Course: 19:19 Patient arrived in ED. sg 19:22 Kellie Trevino RN is Primary Nurse. ea 19:24 Triage completed. ea 19:24 Deuce Hendricks NP is PHCP. pm1 19:24 Fausto Paniagua MD is Attending Physician. pm1 19:24 Arm band placed on right wrist. Patient placed in an exam room, on a stretcher, on ea pulse oximetry. 19:24 Patient has correct armband on for positive identification. Bed in low position. Call ea light in reach. 19:55 Maintain EMS IV. Dressing intact. Good blood return noted. Site clean \T\ dry. Gauge \T\ ea site: 18G LFA. 20:10 Chest Single View XRAY In Process Unspecified. EDMS 23:12 No provider procedures requiring assistance completed. ea 23:31 IV discontinued, intact, bleeding controlled, No redness/swelling at site. Pressure ea dressing applied. Administered Medications: 19:55 Drug: NS 0.9% 1000 ml Route: IV; Rate: 1000 ml; Site: left antecubital; ea 23:32 Follow up: Response: No adverse reaction; IV Status: Completed infusion; IV Intake: ea 1000ml 21:55 Drug: NS 0.9% 1000 ml Route: IV; Rate: 1 bolus; Site: left antecubital; ea 23:32 Follow up: Response: No adverse reaction; IV Status: Completed infusion; IV Intake: ea 1000ml 22:17 Drug: Decadron - Dexamethasone 10 mg Route: IVP; Site: left antecubital; ea 23:32 Follow up: Response: No adverse reaction ea Intake: 23:32 IV: 1000ml; Total: 1000ml. ea 23:32 IV: 1000ml; Total: 2000ml. ea Outcome: 23:11 Discharge ordered by MD. pm1 23:31 Discharged to home ambulatory, with family. ea 23:31 Condition: stable 23:31 Discharge instructions given to patient, Instructed on discharge instructions, follow up and referral plans. medication usage, Demonstrated understanding of instructions, follow-up care, medications, Prescriptions given X 2. 23:32 Patient left the ED. ea Signatures: Dispatcher [employer] EDKvng Galeana, RN Deuce Matthew NP LAN SPECIALIST pm1 Kellie Trevino RN RN ea
[2020-06-05 23:52] VITALS: TEMP 98.2
[2020-06-05 23:53] VITALS: BP 118/66; O2SAT 98
--- NOTE | 2020-06-07 07:36 | EKG ---
Test Date: 2020-06-05 Test Time: 19:49:17 Supervisor Contact And Service Clerks: ANTONIO MEASUREMENT RESULTS: Intervals: Rate: 90 IA: 174 QRSD: 108 QT: 364 QTc: 445 [place]: P: 51 IA: 174 QRS: 25 T: 45 INTERPRETIVE STATEMENTS: Normal sinus rhythm Normal ECG Compared to ECG 06/16/2018 18:42:17 Sinus tachycardia no longer present Electronically Signed On 06-07-20 07:32:44 CDT by Enrrique Yusuf
== END 2020-06-05 23:32 | disposition home or self-care (01) ==
LOC: ER 19:18
DX: U07.1 COVID-19 (principal); R53.1 Weakness; I10 Essential (primary) hypertension
CPT/HCPCS: 96361; 93005; 85025; 36415; 80053; 71045; 96374; 99284; J1100; J7030 ×2